=== PATIENT | female | born 1965 | race Caucasian/White ===

== ENCOUNTER 2017-01-26 12:04 | Emergency (ER) | payer BC ==
--- NOTE | 2017-01-26 12:53 | UC ---
Upper Extremity HPI - HPI Summary HPI Summary: gradual onset of right upper extremity pain and swelling x 1 -2 days no trauma hx torn biceps tendon with repair 2016 this is how she presented she is right handed - History of Current Complaint Chief Complaint: UCUpperExtremity Stated Complaint: ARM AND SHOULDER SWOLLEN Time Seen by Provider: 01/26/17 12:23 Hx Obtained From: Patient Hx Last Menstrual Period: 01/10/17 Onset/Duration: Gradual Onset Severity Currently: Mild Pain Intensity: 2 Pain Scale Used: 0-10 Numeric Location Of Pain: Is Diffuse Character: Aching Aggravating Factor(s): Movement, Lifting, Abduction Alleviating Factor(s): Nothing Associated Signs And Symptoms: Positive: Swelling Related History: Dominant Hand Right - Allergies/Home Medications Allergies/Adverse Reactions: Allergies Allergy/AdvReac Type Severity Reaction Status Date / Time Bees Allergy Swelling Uncoded 05/11/15 09:33 PMH/Surg Hx/FS Hx/Imm Hx Previously Healthy: Yes Endocrine History: Hypothyroidism Cardiovascular History: Hypertension - Surgical History Surgical History: Yes Surgery Procedure, Year, and Place: hemmorhoids, C section x2 right shoulder surgery - Family History Known Family History: Positive: Hypertension - Social History Alcohol Use: Rare Substance Use Type: None Smoking Status (MU): Former Smoker Type: Cigarettes Length of Time of Smoking/Using Tobacco: 20 years Have You Smoked in the Last Year: No When Did the Patient Quit Smoking/Using Tobacco: 5 years ago Review of Systems Constitutional: Negative Skin: Negative Eyes: Negative ENT: Negative Respiratory: Negative Cardiovascular: Negative Gastrointestinal: Negative Genitourinary: Negative Motor: Negative Neurovascular: Negative Musculoskeletal: Myalgia Neurological: Negative Psychological: Negative All Other Systems Reviewed And Are Negative: Yes Physical Exam Triage Information Reviewed: Yes Appearance: Well-Appearing, No Pain Distress, Well-Nourished Vital Signs: Initial Vital Signs Temp 99 F 01/26/17 12:10 Pulse 84 01/26/17 12:10 Resp 16 01/26/17 12:10 Pulse Ox 100 01/26/17 12:10 Eyes: Positive: Conjunctiva Clear ENT: Positive: Hearing grossly normal. Negative: Nasal congestion, Nasal drainage, Trismus, Muffled/hoarse voice Neck: Positive: Nontender, No Lymphadenopathy Respiratory: Positive: Lungs clear, Normal breath sounds, No respiratory distress, No accessory muscle use Cardiovascular: Positive: RRR, No Murmur Musculoskeletal: Positive: ROM Limited @ - right shoulder-pain abducting >90, pain flexing at elbow, Edema @ - noted mckenzie forearm and wrist/no erthyema/no venous cords Neurological: Positive: Alert Psychological Exam: Normal Skin Exam: Normal Upper Extremity Course/Dx - Differential Dx/Diagnosis Provider Diagnoses: right arm pain/swelling-? reinjury of biceps tendon Discharge - Discharge Plan Condition: Stable Disposition: HOME Patient Education Materials: Tendon Rupture (ED) Forms: *Work Release Referrals: Randal HYMAN,Efrem Stuart [Primary Care Provider] - Additional Instructions: your venous doppler study was normal I am concerned that you may have re-torn your biceps tendonitis I suggest you follow up with your orthopedist- let us know if you have trouble making an appt sling for comfort advil or aleve for pain Images Front/Back of Body, Lg (Allen): 1 - right 2.5 cm>left 2 - right 1.5 cm>left
--- NOTE | 2017-01-26 15:29 | RAD ---
INDICATION: Right arm pain and swelling. COMPARISON: There are no prior studies available for comparison. TECHNIQUE: Multiple real-time, color flow and Doppler tracings of the right upper extremity were obtained. FINDINGS: The axillary, brachial, basilic and cephalic veins all demonstrate normal compressibility, augmentation with compression and phasic response with respiration. The radial and ulnar veins demonstrate normal compressibility. The subclavian and internal jugular veins also demonstrate normal color flow imaging and phasic response with respiration. IMPRESSION: NO EVIDENCE FOR DEEP VENOUS THROMBOSIS.
== END 2017-01-26 14:55 | disposition home or self-care (01) ==
LOC: UCEAST 12:04
DX: M79.601 Pain in right arm (principal); M79.89 Other specified soft tissue disorders; I10 Essential (primary) hypertension; Z87.891 Personal history of nicotine dependence
CPT/HCPCS: 99211; G0463